=== PATIENT | male | born 2000 | race Caucasian/White ===

== ENCOUNTER 2022-09-10 08:09 | Emergency (ER) | payer OTHER, BC ==
[2022-09-10 08:43] VITALS: BP 108/60; PULSE 89; RESP 18; TEMP 99; BMI 20.2
[2022-09-10] MEDS ORDERED: LIDOCAINE 5% TOPICAL PATCH TP ONE (10:28)
[2022-09-10] MEDS ORDERED: IBUPROFEN 600 MG TABLET (FP) PO ONE ×2 (10:28→10:34)
[2022-09-10] MEDS ORDERED: METHOCARBAMOL 500 MG TABLET PO ONE (10:29)
[2022-09-10] MEDS ORDERED: LIDOCAINE 5% TOPICAL PATCH ONE (10:33)
[2022-09-10] MEDS ORDERED: METHOCARBAMOL 500 MG TABLET ONE (10:34)
[2022-09-10] MEDS ORDERED: LIDOCAINE PATCH REMOVAL MC SCH (22:00)
== END 2022-09-10 11:17 | disposition home or self-care (01) ==
LOC: JERFT 08:09 → JER 08:09 → JERFT 11:17
DX: S13.4XXA Sprain of ligaments of cervical spine, initial encounter (principal); V49.9XXA Car occupant (driver) (passenger) injured in unspecified traffic accident, initial encounter
CPT/HCPCS: 71046-TC-FY; 93005; 93010; 99284-25

== ENCOUNTER 2023-08-15 19:21 | Emergency (ER) | payer BC, OTHER ==
[2023-08-15 19:30] VITALS: BP 102/60; PULSE 86; RESP 18; TEMP 98.5; BMI 20.2
[2023-08-15] MEDS ORDERED: ACETAMINOPHEN 500 MG TABLET (FP) PO ONE (21:25)
[2023-08-15] MEDS ORDERED: ACETAMINOPHEN 500 MG TABLET (FP) ONE (22:17)
[2023-08-15 22:36] LABS: URINE APPEARANCE CLEAR; URINE BILIRUBIN NEGATIVE (NEGATIVE); URINE COLOR YELLOW; URINE GLUCOSE (UA) NEGATIVE (NEGATIVE); URINE KETONE NEGATIVE (NEGATIVE); URINE LEUK ESTERASE NEGATIVE (NEGATIVE); URINE NITRITE NEGATIVE (NEGATIVE); URINE PROTEIN NEGATIVE (NEGATIVE); URINE UROBILINOGEN 0.2 mg/dL (0.2-1.0)
[2023-08-15 23:54] LABS: HIV INTERPRETATION NEGATIVE (NEGATIVE)
[2023-08-16] MEDS ORDERED: WATER FOR INJ,STERILE 10 ML ONE (00:06)
== END 2023-08-16 00:25 | disposition home or self-care (01) ==
LOC: JERFT 19:21 → JER 19:21
DX: N50.811 Right testicular pain (principal); Z20.822 Contact with and (suspected) exposure to COVID-19
CPT/HCPCS: 0241U-QW; 36415; 76870-TC; 81003; 86780; 87086; 87389; 87491; 87591; 96372; 99284-25

== ENCOUNTER 2024-11-10 20:32 | Emergency (ER) | payer OTHER ==
[2024-11-10 20:37] VITALS: BP 114/74; PULSE 108; RESP 18; TEMP 99; BMI 20.2
[2024-11-10] MEDS ORDERED: IBUPROFEN 600 MG TABLET (FP) PO ONE (20:57)
[2024-11-10] MEDS ORDERED: ACETAMINOPHEN 500 MG TABLET (FP) ONE (20:57)
[2024-11-10] MEDS: IBUPROFEN 600 MG TABLET (FP) PO ONE (20:58)
[2024-11-10] MEDS: ACETAMINOPHEN 325 MG TABLET (FP) PO ONE (20:58)
[2024-11-10 22:19] LABS: THROAT:GRP A STREP NOT DETECTED (NOTDETECTED)
[2024-11-10] MEDS ORDERED: AMOXICILLIN 250 MG CAPSULE ONE (22:20)
[2024-11-10] MEDS: AMOXICILLIN 500 MG CAPSULE (FP) PO ONE (22:21)
== END 2024-11-10 22:24 | disposition home or self-care (01) ==
LOC: JERFT 20:32
DX: J02.9 Acute pharyngitis, unspecified (principal); R50.9 Fever, unspecified; R07.0 Pain in throat; R11.0 Nausea; M79.10 Myalgia, unspecified site
CPT/HCPCS: 0241U-QW; 87651; 99283-25